=== PATIENT | female | born 1985 | race Two or more races ===

== ENCOUNTER 2021-09-25 05:11 | Inpatient (IN) | payer OTHER ==
[~2021-09-25] VITALS: Ht 162.6 cm; Wt 71.2 kg
[2021-09-25] MEDS ORDERED: ATABEX DHA 200200 MG (05:38)
[2021-09-26] MEDS ORDERED: FOLIC ACID1 MG (11:03)
[2021-09-26] MEDS ORDERED: ATABEX DHA 200200 MG (11:03)
[2021-09-27] MEDS ORDERED: ANALPRAM HC 1%30 GM TOP (09:04)
== END 2021-09-27 11:50 | disposition home or self-care (01) | DRG 807 ==
LOC: LDR 05:11 → OB/GYN 05:11
PROVIDERS: ADMIT Obstetrics & Gynecology; ATTEND Obstetrics & Gynecology
PROC: 0KQM0ZZ Repair Perineum Muscle, Open Approach (ICD-10-PCS; principal; 2021-09-25)
PROC: 10E0XZZ Delivery of Products of Conception, External Approach (ICD-10-PCS; 2021-09-25)
PROC: 4A1HXCZ Monitoring of Products of Conception, Cardiac Rate, External Approach (ICD-10-PCS; 2021-09-25)
DX: O70.1 Second degree perineal laceration during delivery (principal); Z37.0 Single live birth; Z3A.38 38 weeks gestation of pregnancy; Z20.822 Contact with and (suspected) exposure to COVID-19